=== PATIENT | female | born 1990 | race Caucasian/White ===

== ENCOUNTER 2016-09-21 21:35 | Emergency (ER) | payer MEDICAID ==
[~2016-09-21] VITALS: Ht 160 cm; Wt 88.7 kg
[~2016-09-21 21:35] MED LIST: ANTIBIOTIC PO; PREN1TAB60 PO
[2016-09-21 23:20] LABS: BLOOD UREA NITROGEN 15 mg/dL (7-18)
[2016-09-21 23:53] VITALS: BP 138/89
== END 2016-09-22 00:57 | disposition home or self-care (01) ==
LOC: ED 09-22 00:19
DX: O26.891 Other specified pregnancy related conditions, first trimester (principal); R10.30 Lower abdominal pain, unspecified; F17.210 Nicotine dependence, cigarettes, uncomplicated; Z3A.01 Less than 8 weeks gestation of pregnancy
CPT/HCPCS: 36415; 76801; 80048; 81003; 82040; 84702; 85025; 99285

== ENCOUNTER 2017-01-19 07:57 | Outpatient (CLI) | payer MEDICAID ==
[2017-01-19 08:30] VITALS: BP 119/60
== END 2017-01-19 09:43 | disposition home or self-care (01) ==
LOC: LDOP 07:57
PROVIDERS: ATTEND Obstetrics & Gynecology
DX: O26.852 Spotting complicating pregnancy, second trimester (principal); O44.22 Partial placenta previa NOS or without hemorrhage, second trimester; O26.892 Other specified pregnancy related conditions, second trimester; O99.513 Diseases of the respiratory system complicating pregnancy, third trimester; J45.909 Unspecified asthma, uncomplicated; R10.30 Lower abdominal pain, unspecified; Z3A.21 21 weeks gestation of pregnancy
CPT/HCPCS: 59025; 99211; G0463

== ENCOUNTER 2017-03-21 10:39 | Inpatient (IN) | payer MEDICAID ==
[~2017-03-21] VITALS: Ht 157.5 cm; Wt 88.6 kg
[2017-03-21 11:34] VITALS: BP 125/72
[2017-03-21 12:44] LABS: AMPHETAMINE SCREEN, URINE Negative (Negative); BARBITURATE SCREEN, URINE Negative (Negative); BENZODIAZEPINE SCREEN, URINE Negative (Negative); CANNABINOID SCREEN, URINE Positive (Negative); COCAINE SCREEN, URINE Negative (Negative); METHADONE SCREEN, URINE Negative (Negative); OPIATE SCREEN, URINE Negative (Negative)
[2017-03-21 15:55] LABS: BASOPHILS # (AUTO) 0.01 x10^3/uL (0-0.1); BASOPHILS % (AUTO) 0 % (0-1); EOSINOPHILS # (AUTO) 0.01 x10^3/uL (0-0.4); EOSINOPHILS % (AUTO) 0 % (1-7); LYMPHOCYTES # (AUTO) 1.26 x10^3/uL (1-3.4); LYMPHOCYTES % (AUTO) 12 % (22-44); MD NO; MEAN CORPUSCULAR HEMOGLOBIN 29.7 pg (27.0-34.8); MEAN CORPUSCULAR HGB CONC 33.6 g/dL (32.4-35.8); MEAN CORPUSCULAR VOLUME 88.5 fL (80-100); MEAN PLATELET VOLUME 9.9 fL (7.4-10.4); MONOCYTES # (AUTO) 0.37 x10^3/uL (0.2-0.8); MONOCYTES % (AUTO) 3 % (2-9); NEUTROPHILS # (AUTO) 9.28 x10^3/uL (1.8-6.8); NEUTROPHILS % (AUTO) 85 % (42-75); PLATELET COUNT 183 x10^3/uL (130-400); RED BLOOD COUNT 3.96 x10^6/uL (3.82-5.3); RED CELL DISTRIBUTION WIDTH 13.3 % (9.6-15.2)
[2017-03-22] MEDS ORDERED: NICOTINE 14MG/24 HR PATCH.TD24 TD SCH (08:30)
[2017-03-22] MEDS ORDERED: PREN1TAB60 PO (08:31)
[2017-03-22 21:42] LABS: BASOPHILS # (AUTO) 0.06 x10^3/uL (0-0.1); BASOPHILS % (AUTO) 1 % (0-1); EOSINOPHILS # (AUTO) 0.03 x10^3/uL (0-0.4); EOSINOPHILS % (AUTO) 0 % (1-7); LYMPHOCYTES # (AUTO) 1.79 x10^3/uL (1-3.4); LYMPHOCYTES % (AUTO) 17 % (22-44); MD NO; MEAN CORPUSCULAR HEMOGLOBIN 29.5 pg (27.0-34.8); MEAN CORPUSCULAR HGB CONC 33.3 g/dL (32.4-35.8); MEAN CORPUSCULAR VOLUME 88.7 fL (80-100); MEAN PLATELET VOLUME 9.1 fL (7.4-10.4); MONOCYTES # (AUTO) 0.66 x10^3/uL (0.2-0.8); MONOCYTES % (AUTO) 6 % (2-9); NEUTROPHILS # (AUTO) 7.85 x10^3/uL (1.8-6.8); NEUTROPHILS % (AUTO) 76 % (42-75); PLATELET COUNT 182 x10^3/uL (130-400); RED BLOOD COUNT 3.94 x10^6/uL (3.82-5.3); RED CELL DISTRIBUTION WIDTH 13.8 % (9.6-15.2)
[2017-03-23] MEDS ORDERED: RHOGAM FROM BLOOD BANK 1 NOTE EA IM/IV ONE (07:00)
[2017-03-24 07:56] VITALS: BP 121/60
== END 2017-03-24 12:09 | disposition home or self-care (01) | DRG 781 ==
LOC: LDOP 10:39 → LDIP 11:46
PROVIDERS: ADMIT Obstetrics & Gynecology; ATTEND Obstetrics & Gynecology
PROC: 30233S1 Transfusion of Nonautologous Globulin into Peripheral Vein, Percutaneous Approach (ICD-10-PCS; principal; 2017-03-23)
DX: O43.893 Other placental disorders, third trimester (principal); O99.513 Diseases of the respiratory system complicating pregnancy, third trimester; O99.323 Drug use complicating pregnancy, third trimester; J45.20 Mild intermittent asthma, uncomplicated; F12.90 Cannabis use, unspecified, uncomplicated; F17.210 Nicotine dependence, cigarettes, uncomplicated; O46.93 Antepartum hemorrhage, unspecified, third trimester; O99.333 Smoking (tobacco) complicating pregnancy, third trimester; Z3A.30 30 weeks gestation of pregnancy; Z82.49 Family history of ischemic heart disease and other diseases of the circulatory system; Z82.3 Family history of stroke; Z83.3 Family history of diabetes mellitus; Z86.19 Personal history of other infectious and parasitic diseases
CPT/HCPCS: 36415; 80307; 85025; 85384; 85460; 86850; 86870; 86900; 86922; 86923; J2790

== ENCOUNTER 2017-05-08 20:42 | Observation (INO) | payer MEDICAID ==
[2017-05-08 21:18] VITALS: BP 126/62
[2017-05-08 21:19] LABS: MICROSCOPIC INDICATED
[2017-05-08 21:32] LABS: BASOPHILS # (AUTO) 0.02 x10^3/uL (0-0.1); BASOPHILS % (AUTO) 0 % (0-1); EOSINOPHILS # (AUTO) 0.01 x10^3/uL (0-0.4); EOSINOPHILS % (AUTO) 0 % (1-7); LYMPHOCYTES # (AUTO) 1.49 x10^3/uL (1-3.4); LYMPHOCYTES % (AUTO) 12 % (22-44); MD NO; MEAN CORPUSCULAR HEMOGLOBIN 28.7 pg (27.0-34.8); MEAN CORPUSCULAR HGB CONC 32.9 g/dL (32.4-35.8); MEAN CORPUSCULAR VOLUME 87.2 fL (80-100); MEAN PLATELET VOLUME 9.6 fL (7.4-10.4); MONOCYTES # (AUTO) 0.88 x10^3/uL (0.2-0.8); MONOCYTES % (AUTO) 7 % (2-9); NEUTROPHILS % (AUTO) 82 % (42-75); PLATELET COUNT 221 x10^3/uL (130-400); RED CELL DISTRIBUTION WIDTH 14.9 % (9.6-15.2)
[2017-05-08 21:42] LABS: AMPHETAMINE SCREEN, URINE Negative (Negative); BARBITURATE SCREEN, URINE Negative (Negative); BENZODIAZEPINE SCREEN, URINE Negative (Negative); CANNABINOID SCREEN, URINE Positive (Negative); COCAINE SCREEN, URINE Negative (Negative); METHADONE SCREEN, URINE Negative (Negative); OPIATE SCREEN, URINE Negative (Negative)
[2017-05-08] MEDS ORDERED: ACETAMINOPHEN 325 MG TABLET ONE (23:06)
[2017-05-08] MEDS ORDERED: ACETAMINOPHEN 325 MG TABLET PO PRN (23:30)
[2017-05-08] MEDS ORDERED: ACETAMINOPHEN 325 MG TABLET PO ONE (23:30)
[2017-05-09] MEDS ORDERED: METR500T PO (00:50)
== END 2017-05-09 01:05 | disposition home or self-care (01) ==
LOC: LDOP 20:42 → LDIP 22:40
PROVIDERS: ADMIT Obstetrics & Gynecology; ATTEND Obstetrics & Gynecology
DX: O62.9 Abnormality of forces of labor, unspecified (principal); O99.513 Diseases of the respiratory system complicating pregnancy, third trimester; O99.334 Smoking (tobacco) complicating childbirth; O99.613 Diseases of the digestive system complicating pregnancy, third trimester; J45.909 Unspecified asthma, uncomplicated; K21.9 Gastro-esophageal reflux disease without esophagitis; Z37.0 Single live birth; Z3A.37 37 weeks gestation of pregnancy
CPT/HCPCS: 36415; 59025; 76815; 80307; 81001; 85025; 85460; 87086; G0378

== ENCOUNTER 2017-05-11 23:04 | Inpatient (IN) | payer MEDICAID ==
[2017-05-10 04:45] VITALS: BP 102/63
[~2017-05-11] VITALS: Ht 157.5 cm; Wt 100.0 kg
[~2017-05-11 23:04] MED LIST changes: +METR500T PO
[2017-05-11 23:05] VITALS: BP 123/71
[2017-05-12] MEDS ORDERED: FENTANYL PF 100 MCG/2ML ONE (00:16)
[2017-05-12] MEDS ORDERED: FENTANYL PF 100 MCG/2ML IVPush PRN (00:30)
[2017-05-12] MEDS ORDERED: LACTATED RINGERS 1,000 ML IVBOLUS ONE (00:30)
[2017-05-12] MEDS ORDERED: OXYTOCIN 30U/ 0.9% NaCL 500ML 500 ML IV ONE ×2 (00:38→00:42)
[2017-05-12] MEDS ORDERED: D5%-LACTATED RINGERS 1,000 ML IV SCH (00:42)
[2017-05-12] MEDS ORDERED: NEWBORN KIT ONE (00:42)
[2017-05-12] MEDS ORDERED: OXYTOCIN 30U/ 0.9% NaCL 500ML 500 ML ONE ×2 (00:43→03:20)
[2017-05-12] MEDS ORDERED: MISOPROSTOL 200 MCG TABLET ONE (00:43)
[2017-05-12] MEDS ORDERED: ONDANSETRON 2MG/ML, 2ML IVPush PRN (01:00)
[2017-05-12 01:09] LABS: MEAN CORPUSCULAR HEMOGLOBIN 28.8 pg (27.0-34.8); MEAN CORPUSCULAR HGB CONC 32.7 g/dL (32.4-35.8); MEAN PLATELET VOLUME 9.4 fL (7.4-10.4); PLATELET COUNT 194 x10^3/uL (130-400); RED BLOOD COUNT 4.28 x10^6/uL (3.82-5.3); RED CELL DISTRIBUTION WIDTH 15.2 % (9.6-15.2)
[2017-05-12] MEDS ORDERED: LACTATED RINGERS 1,000 ML IV SCH (01:20)
[2017-05-12] MEDS ORDERED: FENTANYL/BUPIV./NS/PF 250 ML EPIDCONT SCH (01:20)
[2017-05-12] MEDS ORDERED: FENTANYL/BUPIV./NS/PF 250 ML EPIDCONT ONE (01:22)
[2017-05-12] MEDS ORDERED: BUPIVACAINE/PF 0.25% ONE (01:22)
[2017-05-12 01:27] LABS: BASOPHILS # (AUTO) 0.08 x10^3/uL (0-0.1); BASOPHILS % (AUTO) 1 % (0-1); EOSINOPHILS # (AUTO) 0.01 x10^3/uL (0-0.4); EOSINOPHILS % (AUTO) 0 % (1-7); LYMPHOCYTES # (AUTO) 1.79 x10^3/uL (1-3.4); LYMPHOCYTES % (AUTO) 11 % (22-44); MD SCAN; MONOCYTES # (AUTO) 0.99 x10^3/uL (0.2-0.8); MONOCYTES % (AUTO) 6 % (2-9); NEUTROPHILS # (AUTO) 13.83 x10^3/uL (1.8-6.8); NEUTROPHILS % (AUTO) 83 % (42-75)
[2017-05-12] MEDS ORDERED: EPHEDRINE 50 MG/ML, 1ML IVPush PRN (01:30)
[2017-05-12] MEDS ORDERED: LACTATED RINGERS 1,000 ML IVBOLUS PRN (01:30)
[2017-05-12] MEDS ORDERED: NALOXONE 0.4 MG/ML, 1ML IVPush PRN (01:30)
[2017-05-12] MEDS ORDERED: IBUPROFEN 600 MG TABLET ONE (02:49)
[2017-05-12] MEDS: IBUPROFEN 600 MG TABLET PO PRN ×3 (02:52→18:10)
[2017-05-12] MEDS ORDERED: ACETAMINOPHEN 325 MG TABLET PO PRN ×2 (03:00)
[2017-05-12] MEDS ORDERED: MISOPROSTOL 200 MCG TABLET PR PRN (03:00)
[2017-05-12] MEDS ORDERED: CARBOPROST TROMETHAMINE 250 MCG/ML, 1ML IM PRN (03:00)
[2017-05-12] MEDS ORDERED: METHYLERGONOVINE 0.2 MG/ML IM PRN (03:00)
[2017-05-12] MEDS ORDERED: RHOGAM FROM BLOOD BANK 1 NOTE EA IM/IV ONE (03:00)
[2017-05-12] MEDS ORDERED: DIPH,PERTUSS(ACELL),TET VAC/PF NC IM-VACC PRN (03:00)
[2017-05-12] MEDS ORDERED: MEASLES,MUMPS&RUBELLA VACC/PF 0.5 ML SQ PRN (03:00)
[2017-05-12] MEDS: OXYTOCIN 30U/ 0.9% NaCL 500ML 500 ML IV SCH ×3 (03:21→22:48)
[2017-05-12 04:23] LABS: AMPHETAMINE SCREEN, URINE Negative (Negative); BARBITURATE SCREEN, URINE Negative (Negative); BENZODIAZEPINE SCREEN, URINE Negative (Negative); CANNABINOID SCREEN, URINE Positive (Negative); COCAINE SCREEN, URINE Negative (Negative); METHADONE SCREEN, URINE Negative (Negative); OPIATE SCREEN, URINE Negative (Negative)
[2017-05-12 04:40] VITALS: BP 102/63
[2017-05-12] MEDS: DOCUSATE 100 MG CAPSULE PO PRN ×2 (07:56→20:29)
[2017-05-12] MEDS: PRENATAL VIT/IRON/FA 1 EACH TABLET PO SCH (07:56)
[2017-05-12 08:00] VITALS: BP 133/94
[2017-05-12] MEDS ORDERED: metroNIDAZOLE 500 MG TABLET PO SCH (09:00)
[2017-05-12 10:20] LABS: MEAN CORPUSCULAR HEMOGLOBIN 29.1 pg (27.0-34.8); MEAN PLATELET VOLUME 9.4 fL (7.4-10.4); PLATELET COUNT 188 x10^3/uL (130-400); RED CELL DISTRIBUTION WIDTH 15.5 % (9.6-15.2)
[2017-05-12 10:31] LABS: BASOPHILS # (AUTO) 0.05 x10^3/uL (0-0.1); BASOPHILS % (AUTO) 0 % (0-1); EOSINOPHILS % (AUTO) 0 % (1-7); LYMPHOCYTES # (AUTO) 1.43 x10^3/uL (1-3.4); LYMPHOCYTES % (AUTO) 8 % (22-44); MD SCAN; MONOCYTES # (AUTO) 0.92 x10^3/uL (0.2-0.8); MONOCYTES % (AUTO) 5 % (2-9); NEUTROPHILS # (AUTO) 16.75 x10^3/uL (1.8-6.8); NEUTROPHILS % (AUTO) 88 % (42-75)
[2017-05-12 12:00] VITALS: BP 128/80
[2017-05-12] MEDS ORDERED: PNEUMOCOCCAL 23 VACCINE IM-VACC ONE (13:00)
[2017-05-12 20:20] VITALS: BP 121/80
[2017-05-12] MEDS: OXYcodone/APAP 5/325MG TABLET PO PRN (20:29)
[2017-05-12] MEDS ORDERED: metroNIDAZOLE 500 MG TABLET HOMEMEDPO SCH (21:00)
[2017-05-13] MEDS: IBUPROFEN 600 MG TABLET PO PRN (05:34)
[2017-05-13] MEDS: OXYcodone/APAP 5/325MG TABLET PO PRN ×2 (05:34→09:59)
[2017-05-13] MEDS: DOCUSATE 100 MG CAPSULE PO PRN (07:46)
[2017-05-13] MEDS: PRENATAL VIT/IRON/FA 1 EACH TABLET PO SCH (07:46)
== END 2017-05-13 10:35 | disposition home or self-care (01) | DRG 775 ==
LOC: LDOP 23:04 → LDIP 05-12 00:44 → 2NW 05-12 04:30
PROVIDERS: ADMIT Obstetrics & Gynecology; ATTEND Obstetrics & Gynecology
PROC: 10E0XZZ Delivery of Products of Conception, External Approach (ICD-10-PCS; principal; 2017-05-12)
PROC: 3E0R3BZ Introduction of Anesthetic Agent into Spinal Canal, Percutaneous Approach (ICD-10-PCS; 2017-05-12)
PROC: 00HU33Z Insertion of Infusion Device into Spinal Canal, Percutaneous Approach (ICD-10-PCS; 2017-05-12)
DX: O77.0 Labor and delivery complicated by meconium in amniotic fluid (principal); Z37.0 Single live birth; Z3A.37 37 weeks gestation of pregnancy
CPT/HCPCS: 36415; 80307; 82803; 85025; 85461; 86850; 86870; 86900; 86922; 86923; 90732; J2790; J3010; J2590; J7120